=== PATIENT | male | born 1990 | race Caucasian/White ===

== ENCOUNTER 2024-08-29 13:53 | Outpatient (AMB) | payer OTHER, SELFPAY ==
--- NOTE | 2024-08-29 13:52 | A.OFFPC_ITS ---
Vital Signs 08/29/24 13:57 Height 6 ft 2 in Weight 191 lb BMI 24.5 BP 118/64 Blood Pressure Location Rt brachial Pulse 83 Pulse Source Pulse Oximeter Temp 97.2 F Pulse Oximetry (%) 99 Intake Visit Reasons: physical Intake Note: patient stats he has been feeling heart papiltations for the past few weeks Allergies No Known Allergies Allergy (Verified 08/29/24 13:56) Physical exam (Primary Care) Vital Signs: Last Vital Signs Temp 97.2 F 08/29/24 13:57 Pulse 83 08/29/24 13:57 BP 118/64 08/29/24 13:57 Pulse Ox 99 08/29/24 13:57 BMI result Body Mass Index 24.5 Coding Level of Care Code New Pt Level 3 (86694) New Pt Prev Care 18-39yr(19025 Diagnoses Annual physical exam Z00.00 Palpitations R00.2 Assessment & Plan Assessment & Plan (1) Annual physical exam: Code(s): Z00.00 - Encounter for general adult medical examination without abnormal findings Plan: Blood work ordered. Will call with results (2) Palpitations: Code(s): R00.2 - Palpitations Plan: EKG revd. NSR. Reassurance Plan History of Present Illness The patient is a 33-year-old male presenting for a routine physical examination with reported palpitations. The palpitations have recently started and are characterized by a noticeable change in heartbeat sensation or rhythm, occurring several times per week and re solving spontaneously. The patient associates these events with an increased intake of caffeine due to sleep disruption from caring for a [id number] child. There is no associated dizziness or nausea but brief lightheadedness is noted. The patient has no significant medical history over the past ten years and does not take any regular medications. He denies substance abuse beyond moderate alcohol consumption and occasional use of caffeine. His family history includes cardiac events, particularly in a grandfather who smoked, and essential hypertension in his father. Social History - Employment: Currently on paternity leave, usually works at [employer] in the [place]. - Family status: Recently had a ; reports sleep deprivation. - Substance use: Increased caffeine intake; moderate alcohol consumption. - Physical activity: Less active than desired due to current family responsibilities. Review of Systems - Cardiovascular: Reports palpitations with associated brief lightheadedness. - Neurological: Denies dizziness, syncope, or persistent visual disturbances. Physical Exam General: Appearance normal, both eyes and all related structures Nutritional Appearance: Well nourished Orientation/consciousness: Patient oriented x3 Limitations: No limitations Head: Normal to inspection Neck: Normal visual inspection Chest: Normal palpation of entire chest wall Respiratory: Normal respiratory effort Neurology: Patient oriented x3, reports brief lightheadedness but no dizziness or nausea Results - Diagnostic Tests: - Electrocardiogram (EKG) planned for palpitations. - Laboratory tests: Blood work planned, including thyroid, anemia, sugar, kidney, liver, and cholesterol panels. Plan An electrocardiogram is planned today to assess the palpitations, while comprehensive blood tests will evaluate thyroid and other metabolic functions. Management includes monitoring caffeine intake, as it might relate to increased palpitations, and considering the family history of cardiovascular diseases in ongoing care. The patient is instructed to attend a lab for fasting blood work and is advised the results will guide any further management. Patient was informed and verbally consented to the use of an ambient scribe for clinic note documentation during this visit. Discussion Notes I discussed with the patient that the palpitations seem benign but warrant further investigation to rule out thyroid or metabolic causes. An EKG today and comprehensive blood work will provide more insight. I advised fasting for blood work and discussed convenient lab locations. No immediate concern was expressed; however, the importance of moderation in caffeine consumption was emphasized due to its potential impact on heart rhythm. Patient Instructions - Schedule and undergo an EKG as planned today. - Attend a fasting blood draw at [place] or an affiliated lab for comprehensive blood tests. - Try to moderate coffee intake to assess its impact on heart palpitations. - Report any increase in frequency or severity of symptoms to the clinic. - Maintain a balanced diet and consider regular physical activity when possible. Orders: Orders AMB EKG-In Office Today R07.9 - Chest pain, unspecified
[2024-08-29 13:57] VITALS: BP 118/64; PULSE 83; TEMP 36.2; O2SAT 99; BMI 24.5
== END 2024-08-29 15:06 | disposition home or self-care (01) ==
LOC: HO.HMCSH 13:53
PROVIDERS: PCP Internal Medicine; Visit Provider Internal Medicine
DX: Z00.00 Encounter for general adult medical examination without abnormal findings (principal); R00.2 Palpitations

== ENCOUNTER → 2024-08-29 13:53 | Outpatient (BNVA) | payer OTHER, SELFPAY | PROVIDERS: PCP Internal Medicine; Visit Provider Internal Medicine ==